=== PATIENT | female | born 1995 | race Caucasian/White ===

== ENCOUNTER 2018-08-01 00:41 | Emergency (ER) | payer OTHER ==
[~2018-08-01] VITALS: Ht 175.3 cm; Wt 54.4 kg
[2018-08-01 00:41] VITALS: BP 94/54
== END 2018-08-01 01:25 | disposition home or self-care (01) ==
LOC: ER 00:41
DX: S61.411A Laceration without foreign body of right hand, initial encounter (principal); W25.XXXA Contact with sharp glass, initial encounter; Y93.89 Activity, other specified; Y92.89 Other specified places as the place of occurrence of the external cause; Y99.8 Other external cause status
CPT/HCPCS: 12001; 73140; 99283

== ENCOUNTER 2020-05-16 23:44 | Emergency (ER) | payer OTHER ==
[~2020-05-16] VITALS: Ht 177.8 cm; Wt 52.3 kg
[2020-05-17 01:45] VITALS: BP 100/67
== END 2020-05-17 01:49 | disposition home or self-care (01) ==
LOC: ER 23:45
DX: M79.641 Pain in right hand (principal); Z72.89 Other problems related to lifestyle; S62.366A Nondisplaced fracture of neck of fifth metacarpal bone, right hand, initial encounter for closed fracture; X58.XXXA Exposure to other specified factors, initial encounter; Y93.89 Activity, other specified; Y92.89 Other specified places as the place of occurrence of the external cause; Y99.8 Other external cause status
CPT/HCPCS: 29125; 29130; 73130; 99283